=== PATIENT | male | born 1955 | race Caucasian/White ===

== ENCOUNTER 2017-04-28 21:46 | Observation (INO) | payer OTHER ==
[~2017-04-28] VITALS: Ht 190.5 cm; Wt 100.2 kg
--- NOTE | ~2017-04-28 | ENPV ---
Carotid Duplex Study Demographics Patient Name PATIENTELISABETH Date of Study 04/29/2017 Patient Number [id number] Gender Male Date of 1955 Age 61 Visit Number [id number] Height Accession Number [id number] Weight Room Number [id number] BSA BMI Referring Interpreting Tavo Stockton MD Physician Physician Physician Ordering Physician Jose Morris MD School Counselor Preschool Associate Teacher Wilfredo Garland BS, RT Conclusions Summary The right internal carotid artery has mild 1-39%, plaque and stenosis. The right vertebral artery is present with antegrade flow. The left internal carotid artery has mild, 1-39%, plaque and stenosis. The left vertebral artery is present with antegrade flow. Procedure Type of Study: Cerebral:Carotid, Carotid Doppler Bilateral. Indications for Study:TIA. Allergies - No known allergies. Patient Status:Routine. Study Location:Inpatient Portable. Technical Quality:Adequate visualization. Velocities are measured in cm/s ; Diameters are measured in cm Carotid Right Measurements Carotid Left Measurements + +--------+--------+ + + + +--------+ --------+ + + !Location !PSV !EDV !Angle !%Stenosis ! !Location !PSV ! EDV !Angle !%Stenosis ! + +--------+--------+ + + + +--------+ --------+ + + !Prox CCA !111 !31 !60 ! ! !Prox CCA !106 ! 18 !60 ! ! + +--------+--------+ + + + +--------+ --------+ + + !Dist CCA !79 !17 !60 ! ! !Dist CCA !91 ! 24 !60 ! ! + +--------+--------+ + + + +--------+ --------+ + + !Prox ICA !104 !36 !60 ! ! !Prox ICA !103 ! 36 !60 ! ! + +--------+--------+ + + + +--------+ --------+ + + !Dist ICA !125 !35 !60 ! ! !Dist ICA !78 ! 27 !44 ! ! + +--------+--------+ + + + +--------+ --------+ + + !Prox ECA !114 ! !60 ! ! !Prox ECA !131 ! !60 ! ! + +--------+--------+ + + + +--------+ --------+ + + !Vertebral !57 ! !60 ! ! !Vertebral !72 ! !60 ! ! + +--------+--------+ + + + +--------+ --------+ + + !Subclavian !151 ! !60 ! ! !Subclavian !154 ! !60 ! ! + +--------+--------+ + + + +--------+ --------+ + + - There is antegrade vertebral flow noted on the right side. - There is antegrade verte bral flow noted on the left side. - Add'l Measurements:ICAPSV/CCAPSV 1.13.ICAEDV/CCAEDV 1.17. - Add'l Measurements:ICAPS V/CCAPSV 0.97.ICAEDV/CCAEDV 2.05. Signature dtt: CY CHAVEZ dttelma: 04/29/17 0927 Physician Self Edit
--- NOTE | ~2017-04-28 | CON ---
PATIENT'S NAME: PATIENT, ELISABETH Ortega [facility] AGE: 61 Y [address] ROOM: [place] [address] LOCATION: GICU ADMIT DATE: 04/28/2017 Consultation DISCHARGE DATE: FAMILY PHYSICIAN: PHYSICIAN, UNKNOWN ATTENDING PHYSICIAN: KALIE FOY Tele Specialist Teleneurology Consult Note REASON FOR CONSULTATION: Stroke alert. FINDINGS: Mr. Cho Patient is a pleasant 61-year-old gentleman with a past medical history significant for coronary artery disease, x2 stents, hernia surgery, CABG x2, hypertension, COPD, and hyperlipidemia, who presents with an episode of confusion and slurred speech. The patient was last known well sometime around dinner time this evening when his noted that he started to act strange and out of character. She was unable to significantly characterize the symptoms other than he seems uninterested in his food and unable to pharmacy picking tech a fork or a knife to eat. His speech also seemed slurred. The patient was then transferred to the emergency department via EMS, who also reported slurring of speech. A CAT scan of the head was done and does not show any acute intracranial abnormality, and I was called to evaluate the patient where he appeared to improve significantly. He is a poor historian and appears a little bit confused, but otherwise reports that he has no focal weakness, numbness, or vision disturbance. He does not appreciate currently any slurred speech. PHYSICAL EXAMINATION: NIH stroke scale was performed and is as follows. 1. Alert and keenly responsive and follows commands and is oriented. 2. Ocular movements are intact. 3. Visual lou are normal. 4. Normal facial symmetry. 5. No drift in the upper extremities. 6. No drift in the lower extremities. 7. No ataxia. 8. Normal sensation. 9. Normal language. 10. No dysarthria. 11. No extinction, again total NIH stroke scale of zero. IMPRESSION: Encephalopathy, unclear etiology, rule out stroke. PLAN: PATIENT'S NAME: PATIENT, ELISABETH Ortega [facility] AGE: 61 Y [address] ROOM: [place] [address] LOCATION: [facility] ADMIT DATE: 04/28/2017 Consultation DISCHARGE DATE: FAMILY PHYSICIAN: PHYSICIAN, UNKNOWN ATTENDING PHYSICIAN: KALIE FOY The patient is not a candidate for IV alteplase or neuro-intervention as his NIH stroke scale is low, and he is outside the treatment window. Further, his symptoms are nonlocalizing and rapidly improving. I would recommend a encephalopathy workup as well that would include toxic, metabolic, or infectious etiologies of his confusion. MRI scan would also be helpful to rule out stroke, and if this is abnormal, then further evaluation with stroke workup can be done at that time. I would continue him on his current outpatient medications, which include aspirin Effient, and pravastatin. 1. DVT prophylaxis and dysphasia screen are also recommended. Thanks very much for allowing us to participate in the care of this patient. Tele Specialist was called to the bedside at approximately 10:57 Eastern Standard Time and arrived to the bedside at approximately 11:00 p.m. Eastern Standard Time to evaluate the patient. If there are any further questions, please do not hesitate to call us back. MD JEFFREY CORONEL/modjared /[id number] d: t: 04/29/17 0533, CONSULTATION REPORT
--- NOTE | ~2017-04-28 | ECHO ---
Transthoracic Echocardiography Report (TTE) Demographics Patient Name PATIENTELISABETH Date of Study 04/30/2017 Patient Number [id number] Visit Number [id number] Date of 1955 Room Number [id number] Accession Number [id number] Gender Male Age 61 year(s) Referring Tara Morris Log Hauler Norman Holt RVT Physician MD Jose Morris MD Physician Interpreting Rebecca Tate MD Bruise Trimmer Physician Supervising Ordering Physician Jose Morris MD, MD/MLP Nurse Stress Emergency Services Dispatcher Conclusions Contractility Score Summary Normal Left Ventricular contractility was noted. Summary Definity images are 79-84. The estimated left ventricular ejection fraction is 50%. Diastolic function indeterminate due to patient's arrhythmia. Mildly reduced right ventricular function. The left atrium is mildly dilated. The right atrium is mildly dilated. IVC not visualized due to poor subcostal window. Mild mitral annular calcification. The aortic valve is mildly sclerotic. Mild tricuspid regurgitation by color Doppler. Procedure Type of Study TTE procedure:2D Echocardiogram, Echo with Contrast. Procedure Date Date: 04/30/2017 Start: 08:33 AM Study Location: Inpatient Portable Technical Quality: Adequate visualization Indications:TIA. Appropriate Use Criteria: 9 Patient Status: Routine HR: 53 bpm Allergies - No known allergies. M-Mode/2D Measurements LV Diastolic Dimension: 4.32 cm LV Systolic Dimension: 3.11 cm Cardiac Output: 4.31 l/min AO Root Dimension: 2.9 cm LA Dimension: 5 cm RV Base: 3.23 cm LVOT: 2.4 cm RV Mid: 2.87 cm LVOT VTI: 18 cm RV Length: 6.51 cm LV Stroke volume: 81.39 ml TDI-S': 9.21 cm/s Doppler Measurements AV Peak Velocity: 0.99 m/s MV Peak E-Wave: 0.68 m/s AV Peak Gradient: 3.89 mmHg MV Peak A-Wave: 0.54 m/s AV Mean Gradient: 2 mmHg MV E/A Ratio: 1.26 LVOT Peak Velocity: 0.84 m/s MV P1/2t: 76 msec TR Gradient:14.59 mmHg PV Peak Velocity: 0.88 m/s PV Peak Gradient: 3.13 mmHg E' Septal Velocity: 0.06 m/s A' Septal Velocity: 0.08 m/s E' Lateral Velocity: 0.09 m/s A' Lateral Velocity: 0.09 m/s Findings Left Ventricle Diastolic function indeterminate due to patient's arrhythmia. Right Ventricle Mildly reduced right ventricular function. Left Atrium The left atrium is moderately dilated. Right Atrium The right atrium is mildly dilated. IVC not visualized due to poor subcostal window. Mitral Valve Mild mitral annular calcification. Aortic Valve The aortic valve is mildly sclerotic. Tricuspid Valve Mild tricuspid regurgitation by color Doppler. Pulmonic Valve Normal pulmonic valve structure and function. Pericardial Effusion No evidence of pericardial effusion. Miscellaneous Visualized portions of the aortic root and ascending aorta appear normal in size. Pleural Effusion No evidence of pleural effusion. Contractility Score LV regional wall motion:(0-Non visualized 1-Normal 2-Hypokinesis 3-Akinesis 4-Dyskinesis 5-Aneurysm) Signature dtt: Bebeto Fernandez (cardio) dtd: 04/30/17 0833 Physician Self Edit
--- NOTE | ~2017-04-28 | HP ---
PATIENT'S NAME: ELISABETH DOWNING [facility] AGE: 61 Y [address] ROOM: [id number] [place], [place] [address] LOCATION: GICU ADMIT DATE: 04/28/2017 History & Physical DISCHARGE DATE: FAMILY PHYSICIAN: PHYSICIAN, NO ATTENDING PHYSICIAN: KALIE FOY DATE OF SERVICE: 04/29/2017 CHIEF COMPLAINT: "I don't remember." HISTORY OF PRESENT ILLNESS: Mr. Downing is a complex 61-year-old male with a history of coronary artery disease, status post CABG as well as recent stenting, hyperlipidemia, hypertensive chronic kidney disease, prediabetes as among others, who presents as admission to the [facility] under neuro trauma status for confusion. The patient initially had presented to the emergency department around 2144 hours on 04/28 2017 with a chief complaint of slurred speech, and had a stroke alert. Around 2100 hours. went to check on him and he was having slurred speech, difficulty talking, slow thought process, and he did not have any other complaints at that time. Had pretty unremarkable day before. Because of these symptoms, the patient was transferred to the emergency department for further evaluation and management. Upon reaching the emergency department, he had blood pressure 175/81, pulse 84, respirations 16, temp 97.3, oxygen was 95% on room air. He initially had a number of labs in the emergency department including a head CT, which were essentially was negative. Procalcitonin was negative as well as phosphorus. CMS was only remarkable for creatinine of 1.7 as well as albumin of 3.1, and otherwise was normal. ABG showed PO2 of 53 and bicarb of 26, troponin was negative. CBC essentially was unremarkable. The emergency department did call the teleneurology consultation line which did not recommend tPA. They did not recommend any neuro intervention "as his stroke scale was low and he is outside the treatment window." He did appear to be improving but was sent to the floor for further evaluation and management. Upon reaching the floor, the patient essentially could not tell me anything about what happened the night before. He does state that he feels really pretty good and would like to go home today. He had no other complaints at this time. REVIEW OF SYSTEMS: Negative except for those noted in the HPI. ALLERGIES: NO KNOWN DRUG ALLERGIES. PATIENT'S NAME: PATIENT, ELISABETH Ortega [facility] AGE: 61 Y [address] ROOM: [id number] [place], [place] [address] LOCATION: [facility] ADMIT DATE: 04/28/2017 History & Physical DISCHARGE DATE: FAMILY PHYSICIAN: PHYSICIAN, NO ATTENDING PHYSICIAN: KALIE FOY PAST MEDICAL HISTORY: 1. Coronary artery disease of [place] heart, [place] vessels, as well as transplanted vessels with status post PCI and stenting. 2. COPD, 2001. 3. Essential hypertension. 4. Gastroesophageal reflux. 5. Mixed hyperlipidemia. 6. History of tobacco abuse. 7. Hypertensive chronic kidney disease. 8. Palpitations. 9. Prediabetes. PAST SURGICAL HISTORY: 1. CABG in 2001 and 2003. 2. Colonoscopy 2009. 3. EGD 2009. 4. Hernia repair 2011. 5. Stent placement in 2012. SOCIAL HISTORY: The patient is a former tobacco user who smoked on and off for at least a 20- pack year history. He reports rare alcohol use and denies any other drugs. He works at [employer], [employer] and [employer]. He has done so for several years. He is . FAMILY HISTORY: Both parents are . The patient is a rather poor historian about their overall disposition. He thinks they sometime in the 70s. He thinks that both of them from cancer, but he is not certain. His mother, he reports never smoked or drank alcohol, but of some sort of cancer. His father did ultimately from blood clot, but thinks he may have had cancer as well. Out of six children, one from SIDS, one as a stillbirth, one recently from complications of an AK at age 60. The other three, he reports is relatively healthy. PHYSICAL EXAMINATION: VITAL SIGNS: Blood pressure is 141/75, pulse is 64, respirations 18, temp is 97.6. GENERAL: A pleasant, interactive adult male, in no acute distress. HEAD: Normocephalic, atraumatic. Eyes, conjunctivae clear. Sclerae white. ENT: Mucous membranes moist. HEART: Regular rate and rhythm without murmurs, rubs, clicks, gallops. LUNGS: Clear to auscultation in all lou bilaterally. ABDOMEN: Soft, nontender, nondistended. PATIENT'S NAME: PATIENT, ELISABETH Ortega [facility] AGE: 61 Y [address] ROOM: [id number] [place], [place] [address] LOCATION: [facility] ADMIT DATE: 04/28/2017 History & Physical DISCHARGE DATE: FAMILY PHYSICIAN: PHYSICIAN, NO ATTENDING PHYSICIAN: KALIE FOY EXTREMITIES: Warm and well perfused. No clubbing, cyanosis, or edema. NEUROLOGIC: The patient's cranial nerves 2-12 were tested and they are intact. The patient has 5/5 strength in the bilateral upper extremities and the flexion and extension at the elbow and wrist. The patient does have 4/5 extension of the fingers and bilateral, but health screener strength is 5/5. The patient's strength in the lower extremities was 5/5 at the hip, knee, and dorsiflexion and plantar flexion. The patient's [id number] testing and rapid alternating movements as well as tapping were all normal. There is no evidence of pronator drift. LABORATORIES AND X-RAY: As per noted in the HPI. IMPRESSION AND PLAN: A 61-year-old gentleman with slurred speech and possible transient ischemic attack. 1. Slurred speech, confusion, and possible transient ischemic attack. The patient's CT of the head was negative as per previously noted in Teleneurology, did not have any further acute recommendations. We will go ahead and work him up for transient ischemic attack with DANIEL, carotid ultrasound, as well as MRI of the brain without contrast. We will see how these tests all look. Additionally, he has taken 81 mg aspirin. He is currently on Effient. I did recommend increasing about to a full aspirin. We will observe him throughout today. See how he looks tomorrow, may consider discharge home as long as he is feeling stable, there is no evolution. Otherwise it was recommended that the patient be worked up for some sort of encephalopathic process. He does not appear to be any toxins at least per the patient's history, though his job at the [employer] may expose him to potentially some toxic substances. I did go ahead and order some additional blood work as well as chest x-ray, urinalysis with culture, and thyroid. I did repeat blood gas as well. I will see how he does overall today. 2. Chronic ischemic heart disease. 3. Coronary artery disease, heart [place] vessels as well as transplanted vessels. 4. Essential hypertension. 5. Mixed dyslipidemia. All these appeared to be stable. We will continue the patient's home medication regimen. 6. Impaired fasting glucose. We will continue with metformin for now. 7. Gastroesophageal reflux disease. Continue with Dexilant. 8. Likely history of depression anxiety and not explicitly noted in the patient's history whether it is here in the hospital or in the clinic but the patient is taking bupropion. 9. Chronic obstructive pulmonary disease/asthma. The patient is former smoker. We will continue him on his Advair here in the hospital. PATIENT'S NAME: PATIENT, ELISABETH Ortega [facility] AGE: 61 Y [address] ROOM: [place] [address] LOCATION: [facility] ADMIT DATE: 04/28/2017 History & Physical DISCHARGE DATE: FAMILY PHYSICIAN: PHYSICIAN, NO ATTENDING PHYSICIAN: KALIE FOY FLUIDS: None. ELECTROLYTES: Stable. NUTRITION: Diabetic diet. PROPHYLAXIS: As noted above. CODE STATUS: Full code per my discussion with the patient. DISPOSITION: The patient is currently under inpatient status. We will have him here at least another day for observation and further workup. We will have the patient off to the patient's primary care physician, Dr. Neptali Pacheco who should be available. Should he not, I will assume care for the patient for the rest of the hospitalization. MD ABHIJEET JUÁREZ/alphonso /[id number] D: 442 T: HISTORY & PHYSICAL
--- NOTE | ~2017-04-28 | ER ---
PATIENT'S NAME: PATIENT, ELISABETH Ortega [facility] AGE: 61 Y [address] ROOM: [place] [address] LOCATION: [facility] ADMIT DATE: 04/28/2017 ER/Outpatient Report DISCHARGE DATE: FAMILY PHYSICIAN: PHYSICIAN, UNKNOWN ATTENDING PHYSICIAN: KALIE GARCIA Time of Arrival: 2144 hours. Time of Evaluation: 2144 hours. CHIEF COMPLAINT: Slurred speech and stroke alert. HISTORY OF PRESENT ILLNESS: The patient is a 61-year-old male who presents to the emergency department today with a chief complaint of slurred speech and stroke alert. Reports at 2100 hours today, his went to check on him and noted to have slurred speech, difficulties talking, and slowed thought process. The patient was stroke alert from the field. Denies any fevers or chills. No nausea or vomiting. No diarrhea or constipation. Apparently he was acting normal at 2100 hours today, 45 minutes prior to arrival. The patient did not have a history of similar episodes in the past. PAST MEDICAL HISTORY: Diabetes, hypertension, coronary artery disease, dyslipidemia, chronic constipation, right inguinal hernia, and borderline diabetic. PAST SURGICAL HISTORY: Coronary artery bypass grafting in 2001 and 2012. SOCIAL HISTORY: The patient is . Has 5 children. Quit smoking quite some years ago. Drinks occasionally. Denies any illicit drug use. ALLERGIES: NO KNOWN DRUG ALLERGIES. MEDICATIONS: Please see list. PRIMARY CARE DOCTOR: Dr. Pacheco. REVIEW OF SYSTEMS: All systems are reviewed by myself and are negative with the exception of those discussed in the HPI and past medical history. PATIENT'S NAME: PATIENT, ELISABETH Ortega [facility] AGE: 61 Y [address] ROOM: [address] [address] LOCATION: [facility] ADMIT DATE: 04/28/2017 ER/Outpatient Report DISCHARGE DATE: FAMILY PHYSICIAN: PHYSICIAN, UNKNOWN ATTENDING PHYSICIAN: KALIE GARCIA PHYSICAL EXAMINATION: VITAL SIGNS: Weight 100.9 kg, blood pressure 179/81, pulse 84, respiratory rate 16, temperature 97.3, and oxygen saturation 93% on room air. GENERAL: The patient is a 61-year-old male, appears older than stated age, obese, he does have some slowed thought process. HEENT: Normocephalic and atraumatic. Pupils are equal, round, and reactive to light. Extraocular motions are intact. Nares are patent bilaterally. TMs are clear. Oropharynx is clear. NECK: Supple. There is no nuchal rigidity. CARDIOVASCULAR: Regular rate and rhythm. No murmurs, rubs, or gallops. LUNGS: Clear to auscultation bilaterally. No wheezes, rales, or rhonchi. ABDOMEN: Soft, nontender, and nondistended. No rebound, rigidity, or guarding. MUSCULOSKELETAL: The patient moves all 4 extremities. NEUROLOGICAL: GCS of 14. Equal architectural coating finisher strength bilaterally. Moves all 4 extremities. 5/5 muscle strength. Normal finger to nose. Normal rapid hand movement. Equal architectural coating finisher strength bilaterally. Downward going toes. No clonus. SKIN: Warm and dry. LABORATORY DATA AND X-RAYS: Labs and x-rays are obtained. CT scan of the brain is obtained. I have discussed results with the radiologist, shows no acute process. EKG is obtained, interpreted by myself at 2225 hours, shows sinus rhythm with a rate of 75, left axis deviation, normal interval. No ST elevation, ST depression, or T-wave inversion. CBC is normal. CMP is normal except for a creatinine of 1.7. LFTs are normal. Coags are normal. Troponin is less than 0.04. CK and CK-MB are normal. Phosphorus is normal. Amylase and lipase normal. Lactate is normal. Venous blood gas; 7.38/44/53/26/0.6. IMPRESSION: 1. Transient ischemic attack versus cerebrovascular accident. 2. Slurred speech. 3. Initial visit. EMERGENCY DEPARTMENT COURSE: The patient was brought back to the examination room. Seen and evaluated immediately upon arrival by myself. The patient was a stroke alert from the field. Symptoms started about 45 minutes prior to arrival. The patient did have a quick neuro exam and laboratory analysis was obtained and then the patient was proceeded directly to the CT scanner. CT of the brain was obtained, it was negative. We did have Teleneurology, Dr. Clark, seen and evaluated the patient. I discussed the case with her, she does recommend no further medications as the patient is already on blood thinners including Effient and aspirin. She did recommend MRI at some point tomorrow. I have PATIENT'S NAME: PATIENT, ELISABETH Ortega [facility] AGE: 61 Y [address] ROOM: [id number] [place], [place] [address] LOCATION: [facility] ADMIT DATE: 04/28/2017 ER/Outpatient Report DISCHARGE DATE: FAMILY PHYSICIAN: , ROBINSON ATTENDING PHYSICIAN: KALIE GARCIA discussed results with the patient and his family, who is at the bedside. I have recommended admission to the hospital, they are agreeable. I did discuss the case with Dr. Garcia; who is on-call for the patient's primary care doctor, Dr. Pacheco; he is agreeable with the acceptance and without further questions at this time. DISPOSITION: The patient is admitted under the care of Dr. Garcia for Dr. Pacheco in stable condition. DO KOREY UGALDE/audreyl /[id number] d: 04/29/17 0517 t: 04/29/17 0553, OUTPATIENT REPORT
[2017-04-28 21:55] LABS: BASOPHIL # 0.1 K/uL (0.0-0.2); BASOPHIL % 0.7 %; EOSINOPHIL # 0.7 K/uL (0.0-0.5); EOSINOPHIL % 7.3 %; HEMATOCRIT 37.7 % (37.0-53.0); HEMOGLOBIN 13.1 g/dL (12.0-17.0); IMMATURE GRANULOCYTE # 0.1 K/uL (0.0-0.3); IMMATURE GRANULOCYTE % 0.7 %; LYMPHOCYTE # 1.6 K/uL (0.8-4.0); LYMPHOCYTE % 17.4 %; MCH 30.6 pg (27.0-34.0); MCHC 34.7 gm/dL (32.0-36.5); MCV 88.1 fl (83.0-98.0); MONOCYTE # 1.1 K/uL (0.0-1.0); MONOCYTE % 11.9 %; MPV 9.4 fl (9.4-12.4); NEUTROPHIL # (ANC) 5.6 K/uL (1.4-9.0); NRBC % 0 /100WBC (0-0.00); PLATELET COUNT 248 K/uL (150-450); RBC 4.28 M/uL (4.00-6.00); RDW-CV 13.2 % (11.9-14.6); WBC 8.9 K/uL (4.0-11.0)
[2017-04-28 22:04] LABS: INR - (THERAPEUTIC) 0.94 (0.92-1.07); PROTIME 9.9 SECONDS (9.8-11.4); PTT 25 SECONDS (25-32)
[2017-04-28 22:21] LABS: ALBUMIN 3.1 gm/dL (3.5-5.0); ANION GAP 12.3 (10.0-19.0); CALCIUM 8.5 mg/dL (8.5-10.5); CREATININE 1.7 mg/dL (0.6-1.3); POTASSIUM 4.3 mMol/L (3.7-5.1); TOTAL BILIRUBIN 0.2 mg/dL (0.0-1.5); TOTAL PROTEIN 6.5 g/dL (6.0-8.4)
[2017-04-28 22:22] LABS: LACTATE 0.9 mEq/L (0.50-1.60); PCO2 44 mmHg (35-45); PO2 53 mmHg (80-90)
[2017-04-29] MEDS ORDERED: EFFIENT10 MG (01:06)
[2017-04-29] MEDS ORDERED: GLUCOPHAGE500 MG PO (01:06)
[2017-04-29] MEDS ORDERED: PRINIVIL OR ZES10 MG PO (01:07)
[2017-04-29] MEDS ORDERED: CARVEDILOL6.25 MG PO (01:08)
[2017-04-29] MEDS ORDERED: PRAVACHOL40 MG (01:11)
[2017-04-29] MEDS ORDERED: DEXILANT60 MG PO (01:11)
[2017-04-29] MEDS ORDERED: ASPIRIN (CHILDR81 MG PO (01:12)
[2017-04-29] MEDS ORDERED: ADVAIR 250-501 EACH INH (01:13)
[2017-04-29] MEDS ORDERED: WELLBUTRIN XL300 M1 PO (01:35)
--- NOTE | 2017-04-29 02:03 | NUR ---
Patient admitted to ICU as NTU status for TIA at 0008. Patient was at home earlier with family, when he started having slurred speech. Family called 911 and ambulance came and got the patient. Head CT done in ER, was negative. Teleneurology consult in ER said patient had a TIA. Patient has history of a 3 vessel CABG, 2 vessel CABG, hypertension, high cholesterol, edema, asthma, GERD, and is pre-diabetic. Patient is resting comfortably now.
--- NOTE | 2017-04-29 05:28 | NUR ---
Significant Event: Patient is alert and oriented x 3. VSS on room air. Denies any numbness or tingling. Equal strength throughout. PERRLA. Slight generalized headache, patient states tolerable. Stroke scale score of 0. Up with SBA and gait belt. Left forearm IV, saline locked. On diabetic diet. Patient is pleasant and cooperative with cares. Follow up: MRI and carotid dopplers this am.
--- NOTE | 2017-04-29 13:30 | NUR ---
Introduced self and role of care management to patient. Patient lives in [place] with and 5 of their 6 children. He says they adopted 4 children later in life. Patient is anxious to go home and hopes to go home today. Patient denies discharge needs at this time. Will follow.
--- NOTE | 2017-04-29 13:56 | NUR ---
Significant Event: PT ALERT AND ORIENTED X3. PERRLA. STROKE SCALE 0 THIS SHIFT. EQUAL STRENGTH X4. PT DOES NOT HAVE ANY TEETH; STATES THAT DENTURES ARE AT HOME. BRADYCARDIA WHEN SLEEPING WITH RATES IN THE UPPER 40'S-50'S. OTHER VITAL SIGNS STABLE. ON ROOM AIR. IV TO L)FA SALINE LOCKED. TRANSFERS WITH STAND-BY ASSIST. VOIDS PER TOILET. BM THIS SHIFT. COMPLAINS OF A SLIGHT HEADACHE; HAS DENIED ANY NEED FOR PAIN MEDICATIONS. REFUSED A SHOWER TODAY. MRI AND CAROTID DOPPLERS DONE TODAY. Follow up: HOME TOMORROW?
[2017-04-29 19:06] LABS: BILIRUBIN URINE NEGATIVE (NEGATIVE); BLOOD URINE NEGATIVE /UL (NEGATIVE); COLOR URINE YELLOW (YELLOW); GLUCOSE URINE NEGATIVE (NEGATIVE); KETONE URINE NEGATIVE (NEGATIVE); LEUKOCYTES URINE NEGATIVE /UL (NEGATIVE); NITRITE URINE NEGATIVE (NEGATIVE); PROTEIN URINE NEGATIVE (NEGATIVE); TURBIDITY URINE CLEAR (CLEAR); UROBILINOGEN URINE NORMAL (NORMAL)
--- NOTE | 2017-04-30 05:17 | NUR ---
Significant Event: Pt is alert and orineted x3. Pupils are equal and reactive. Moves all extremities spontaneously and to command. Denies any numbness or tingling. Speech back to baseline. Pt has been SR to Parmjit while sleeping. Moves independently. On RA. Voids per toilet. [address] Follow up: Possible discharge today
[2017-04-30] MEDS ORDERED: LEVOTHROID (SY50 MCG PO (08:19)
--- NOTE | 2017-04-30 10:15 | NUR ---
Significant Event: PT A&O x3. VSS, on room air. Denies pain. L)FA IV dc'd. Dismissal instructions given to PT/spouse, voiced understanding. Instructed on cardiac diet, no smoking and new medication. PT up ad rico in room. Wheeled to front lobby and dismissed to home. Echo done this AM. Follow up:
== END 2017-04-30 10:10 | disposition disaster alternative care site (69) ==
LOC: GMED 21:46 → GICU 23:36
PROVIDERS: Emergency Medicine; ADMIT Family Medicine
DX: R47.81 Slurred speech (principal); I25.9 Chronic ischemic heart disease, unspecified; I25.10 Atherosclerotic heart disease of native coronary artery without angina pectoris; I10 Essential (primary) hypertension; E78.2 Mixed hyperlipidemia; K21.9 Gastro-esophageal reflux disease without esophagitis; E11.9 Type 2 diabetes mellitus without complications; J44.9 Chronic obstructive pulmonary disease, unspecified; G93.40 Encephalopathy, unspecified; G93.0 Cerebral cysts; I65.23 Occlusion and stenosis of bilateral carotid arteries; Z87.891 Personal history of nicotine dependence; Z95.1 Presence of aortocoronary bypass graft; Z79.82 Long term (current) use of aspirin; Z79.899 Other long term (current) drug therapy
CPT/HCPCS: C8929; G0378; Q9957

== ENCOUNTER 2017-05-10 00:13 | Inpatient (IN) | payer OTHER ==
[~2017-05-10] VITALS: Ht 188 cm; Wt 101.6 kg
--- NOTE | ~2017-05-10 | HP ---
PATIENT'S NAME: PATIENT, ELISABETH Ortega [facility] AGE: 61 Y [address] ROOM: [place] [address] LOCATION: GPCU ADMIT DATE: 05/10/2017 History & Physical DISCHARGE DATE: FAMILY PHYSICIAN: Arnaud Perez MD ATTENDING PHYSICIAN: KALIE FOY DATE OF SERVICE: Mr. Cho Patient is a 61-year-old male, admitted through the ER for chest pain overnight. ADMITTING DIAGNOSIS: Anterior chest pain, possible unstable angina. Condition right now is good and stable as of 9:00 a.m. Most recent vitals; temperature 97.5, pulse 59, respiratory rate 12, blood pressure 128/69, and saturation 96. Medications given on admission, baby aspirin with IV nitroglycerin, and heparin. The patient has no known drug allergies. HISTORY OF PRESENT ILLNESS: He was admitted overnight with chest pain that radiated down both arms with shortness of breath and weakness that worsened with exertion. He has a history of coronary artery disease with bypass history and risk factors. The patient feels good this morning with no chest pain, but does complain of a headache. Denies other symptoms and is somewhat irritable. PAST MEDICAL HISTORY: Significant for atherosclerotic cardiovascular disease with coronary artery disease, hypertension, COPD, dyslipidemia, prediabetes, tobacco use, GERD, chronic kidney disease, depression, anxiety, hypothyroidism, coronary vascular disease, and cerebrovascular accident. PAST SURGERIES: EGD, colonoscopy, three-vessel coronary artery bypass with a two-vessel coronary artery bypass, inguinal herniorrhaphy, cardiac cath with PICA and stents. SOCIAL HISTORY: He smokes a pack a day with occasional alcohol. ALLERGIES: NO KNOWN DRUG ALLERGIES. REVIEW OF SYSTEMS: He does admit to headache. Otherwise negative at this time. PATIENT'S NAME: PATIENT, ELISABETH Ortega [facility] AGE: 61 Y [address] ROOM: [address] [address] LOCATION: GPCU ADMIT DATE: 05/10/2017 History & Physical DISCHARGE DATE: FAMILY PHYSICIAN: Arnaud Perez MD ATTENDING PHYSICIAN: KALIE FOY PHYSICAL EXAMINATION: GENERAL: Alert and oriented x3. HEENT: Positive for headache reported, negative otherwise. NECK: Supple and no adenopathy. CARDIOVASCULAR: Regular rate and rhythm. No murmurs, rubs, or gallops. LUNGS: Did have an inspiratory wheeze on the right. Otherwise, good air flow. GI: Abdomen nontender, nondistended. Bowel sounds present x4, soft. EXTREMITIES: Pulses palpable, 2+/4. SKIN: Dry skin on the feet with no edema. LABORATORY DATA: Troponin elevated at 0.09. Hematocrit low at 36.9, hemoglobin 12.3, white blood cell count 8.0, and platelets 277. Sodium 141, potassium 3.9, chloride 108, CO2 of 24, BUN 19, creatinine high at 1.8, and glucose high at 133. Calcium low at 8.2, albumin low at 2.9, and magnesium low at 1.7. Hemoglobin A1c 6.1 which is high. PTT was 37 per heparin protocol. His latest GFR is 40. Chest x-ray report was pending with possible mediastinal widening with possible cardiomegaly, possible scarring, and atelectasis both bases bilaterally. ASSESSMENT/PLAN: 1. Acute coronary syndrome with unstable angina. Continue heparin and nitroglycerin IV with a cardiac consult this morning. 2. History of atherosclerotic coronary artery disease, with atherosclerotic vascular disease, coronary artery bypass surgery x2, and cardiac cath with stenting. 3. Pre-diabetes. 4. Hypertension. 5. Dyslipidemia, mixed hyperlipidemia. 6. Tobacco use. 7. Chronic kidney disease. 8. Chronic obstructive pulmonary disease. 9. Depression and anxiety. Dictated by Chaitanya Shaw, Medical Student, for Arnaud Perez MD ARNAUD PEREZ MD COLON/modl PATIENT'S NAME: PATIENT, ELISABETH Ortega [facility] AGE: 61 Y [address] ROOM: [id number] [place], [place] [address] LOCATION: GPCU ADMIT DATE: 05/10/2017 History & Physical DISCHARGE DATE: FAMILY PHYSICIAN: Arnaud Perez MD ATTENDING PHYSICIAN: KALIE FOY /[id number] D: [id number] T: [id number] HISTORY & PHYSICAL
--- NOTE | ~2017-05-10 | ER ---
PATIENT'S NAME: PATIENT, ELISABETH Ortega [facility] AGE: 61 Y [address] ROOM: [place] [address] LOCATION: [facility] ADMIT DATE: 05/10/2017 ER/Outpatient Report DISCHARGE DATE: FAMILY PHYSICIAN: Neptali Pacheco MD ATTENDING PHYSICIAN: Jimmy Tripp Admission date and time documented in the medical record. I saw the patient at 0025 hours. CHIEF COMPLAINT: Anterior chest pain radiating down to both arms with accompanied shortness of breath and generalized weakness. Shortness of breath and chest pain exacerbated with exertion. HISTORY OF PRESENT ILLNESS: This patient is a 61-year-old male who was brought to the emergency room by private vehicle for evaluation because of anterior chest pain. Chest pain radiates down both arms. Denies any neck, jaw, or back pain. Does have accompanied shortness of breath. No nausea, vomiting, diarrhea, diaphoresis, lightheadedness, or dizziness. Does have some generalized weakness. Shortness of breath and chest pain are worsened with exertion. The patient is known to have atherosclerotic ischemic heart disease with coronary artery disease. He has had a previous 2-vessel coronary bypass graft. He has had cardiac catheterizations with PTCA and stenting. He has risk factors including hypertension, known coronary artery disease, luk-riykupg-fukkuzwah diabetes mellitus, and remote tobacco abuse. Does have anxiety, depression, hypothyroidism, and previous cerebrovascular accident. Also has COPD. No joint or muscle swelling, redness, or pain. No skin eruptions or rash. No history of psych issues. No fall or trauma. No lightheadedness, dizziness, syncope, or near syncope. No recent colds, coughs, flus, fever, chills, or sweats. No abdominal pain. No urinary symptoms. No diarrhea. HOME MEDICATIONS: See attached medication list. ALLERGIES: NONE. SOCIAL HISTORY: The patient smokes about a pack of cigarettes per day. Occasional intake of alcohol. SIGNIFICANT PAST MEDICAL HISTORY: Atherosclerotic ischemic heart disease with coronary artery disease, hypertension, COPD, dyslipidemia, ntx-iaaiass-etymxkxbo diabetes mellitus type PATIENT'S NAME: PATIENT, ELISABETH Ortega [facility] AGE: 61 Y [address] ROOM: [place] [address] LOCATION: [facility] ADMIT DATE: 05/10/2017 ER/Outpatient Report DISCHARGE DATE: FAMILY PHYSICIAN: Neptali Pacheco MD ATTENDING PHYSICIAN: Jimmy Tripp 2, tobacco abuse, gastroesophageal reflux, palpitations, chronic kidney disease, depression, anxiety, hypothyroidism, and cerebrovascular accident. OPERATIONS: Esophagogastroduodenoscopy, colonoscopy, initial 3-vessel coronary artery bypass graft followed by 2-vessel coronary bypass graft, inguinal herniorrhaphy, and cardiac catheterization with PTCA and stenting. REVIEW OF SYSTEMS: All systems reviewed by me are negative with the exception of those discussed in the history of present illness. PHYSICAL EXAMINATION: VITAL SIGNS: Temperature 97.5 by Temporal Scanner, pulse 61 and regular, respirations 16, blood pressure 184/90, and O2 saturation on room air is 98%. [place] Coma Scale was 15. HEAD: Normocephalic. EYES, EARS, NOSE, THROAT: Clear. Mucous membranes moist. NECK: No nuchal rigidity. No findings of adenopathy. LUNGS: Clear. Good air flow. No rales, rhonchi, or wheezes. HEART: Regular. Pulses palpable. No real chest pain to palpation. ABDOMEN: Soft, nondistended, and nontender. Good bowel tones. No organomegaly or abnormal mass palpable. No CVA tenderness. EXTREMITIES: Intact. NEUROVASCULAR: Intact. SKIN: Clear. No skin eruptions or rash. LABORATORY DATA AND X-RAYS: CMS was normal except for an elevated glucose of 133, calcium was low at 8.2, creatinine was elevated at 1.8 with a low GFR of 40, magnesium 1.7, CPK was 111, CK-MB was 1.3, troponin was slightly elevated at 0.044, and proBNP was 150. White count was 8000, 70 segs, 12 lymphs, 11 monos, 6 eos, 1 baso, hemoglobin was 12.3, hematocrit 36.9, and platelet count was 277,000. PTT was 28. Pro-time was 9.8 with an INR of 0.93. EKG showed sinus rhythm. No acute ST elevation, ischemic change, or arrhythmia. EMERGENCY DEPARTMENT COURSE: We did give the patient 4 baby aspirin on arrival orally. We started him on IV nitroglycerin drip and IV heparin per cardiac protocol. We did discuss the patient with Dr. Garcia for Dr. Pacheco. IMPRESSION: 1. Anterior chest pain with radiation of the pain down both arms accompanied with shortness of breath and generalized weakness. His chest pain and shortness of breath were exacerbated with exertion. This appears to be PATIENT'S NAME: PATIENT, ELISABETH Ortega [facility] AGE: 61 Y [address] ROOM: [place], [place] [address] LOCATION: [facility] ADMIT DATE: 05/10/2017 ER/Outpatient Report DISCHARGE DATE: FAMILY PHYSICIAN: Neptali Pacheco MD ATTENDING PHYSICIAN: Jimmy Tripp unstable angina. 2. History of atherosclerotic ischemic heart disease with coronary artery disease, status post coronary bypass graft and cardiac catheterization with PTCA and stenting. 3. Azw-zymxzvp-ygqjfmvbz diabetes mellitus. 4. Hypertension. 5. Dyslipidemia. 6. Hgb-dtvkldv-onagpkcrb diabetes mellitus type 2. 7. Tobacco abuse. 8. Hypertensive chronic kidney disease. PLAN: The patient was admitted as an outpatient to U telemetry for further cardiac evaluation and treatment. Discussion ensued with the patient concerning my findings and recommendations, he understands. JIMMY TRIPP MD SDS/modl /[id number] d: 05/10/170 t: 05/13/17 1812, OUTPATIENT REPORT
--- NOTE | ~2017-05-10 | CONS ---
PATIENT'S NAME: PATIENT, ELISABETH Ortega [facility] AGE: 61 Y [address] ROOM: [place] [address] LOCATION: GPCU ADMIT DATE: 05/10/2017 Consultation DISCHARGE DATE: FAMILY PHYSICIAN: Neptali Pacheco MD ATTENDING PHYSICIAN: Arthur Garcia DATE OF CONSULTATION: 05/10/2017 REFERRING PHYSICIAN: Darcie Sullivan MD REQUESTING PROVIDER: Neptali Pacheco MD. REASON FOR CONSULTATION: Chest pain. HISTORY OF PRESENTING ILLNESS: The patient is a very pleasant, 61-year-old male who comes in at midnight yesterday because of recurrent episodes of chest pain all day especially with any exertion. He reports the chest pain occurs in the center of his chest. It is heaviness as well as tightness and goes down both of his arms and he has shortness of breath along with this. He reports he has had 3 episodes yesterday and he had to limit his activities. It would come and go. It would last several minutes about half an hour or so of this severe pain. However, he would have a dull ache most of the day yesterday. The first episode started when he was trying to lift a chair and move it from his truck. He does not have any jaw pain. He does not have any nausea, vomiting, diarrhea, diaphoresis, lightheadedness, or dizziness. He did have some generalized weakness along with the chest pain and shortness of breath. They are worse with exertion. He has had CABG on 2 separate occasions, in 2001 and then in 2003. Initial CABG was MARTINEZ to LAD, SVG to OM and RCA, and apparently, he did have an acute RI after the CABG and all the vein grafts were occluded, but the MARTINEZ was patent, and at that time, he underwent another CABG and underwent an SVG to ramus and an SVG to RCA. His last heart catheterization was in 2012, where the ramus was a very small vessel and the graft to the ramus was completely occluded. His vein graft to the RCA and MARTINEZ to LAD were patent. There was a 90% stenosis in the vein graft to the RCA and that was stented with 1 drug-eluting stent. Since then, the patient reports he has been doing fairly well. He has not been seeing a door worker since that intervention in 2012. He does report seeing Dr. Milligan and Dr. Fernandez in the past. Due to insurance issues and financial reasons, he has not followed up with the door worker. He does have renal insufficiency, not sure if this is acute or chronic. His creatinine on April 26 when he was admitted with TIA type symptoms, was 1.7 and this time, it is 1.8. His last creatinine before these 2 were in 2012 PATIENT'S NAME: PATIENT, ELISABETH Ortega [facility] AGE: 61 Y [address] ROOM: [address] [address] LOCATION: GPCU ADMIT DATE: 05/10/2017 Consultation DISCHARGE DATE: FAMILY PHYSICIAN: Neptali Pacheco MD ATTENDING PHYSICIAN: Arthur Garcia where it was 1.3. The patient does not have any stroke-like symptoms since the last time. No changes in his strength, sensation, vision, swallowing, and speech. He is doing well. The patient does report he is smoking again about 4 to 5 cigarettes every day. He does have history of anxiety, depression, hypothyroidism as well as diabetes mellitus and COPD. He does not have any skin rashes. No other psych issues. No recent fall. No cold, fever, chills, any sweats, or abdominal pain, etc,. The patient is very comfortable during the interview. He is on nitroglycerin and heparin drip and does not have any chest discomfort since admission. REVIEW OF SYSTEMS: All review of systems were discussed with the patient. Pertinent positives and negatives as mentioned in the history of presenting illness. HOME MEDICATIONS: He has been on: 1. Metformin 500 b.i.d. 2. Prasugrel 10 mg p.o. daily. I will have to discontinue that given his history of TIA. 3. Lisinopril 10 mg daily. 4. Coreg 6.25 b.i.d. 5. Pravachol 40 daily. 6. Aspirin 325 mg daily. 7. Bupropion 300 daily. 8. Synthroid 50 mcgs daily. ALLERGIES: NO KNOWN DRUG ALLERGIES. SOCIAL HISTORY: The patient smokes about half a pack of cigarettes per day. Social drinker. No illicit drug abuse. FAMILY HISTORY: Positive for premature coronary artery disease. PAST MEDICAL HISTORY: Coronary artery disease, status post CABG and stents; COPD; dyslipidemia; non- insulin-dependent diabetes mellitus, type 2; tobacco abuse; acid reflux; CKD; depression; anxiety; hypothyroidism; and history of TIA. PATIENT'S NAME: PATIENT, ELISABETH Ortega [facility] AGE: 61 Y [address] ROOM: [place] [address] LOCATION: GPCU ADMIT DATE: 05/10/2017 Consultation DISCHARGE DATE: FAMILY PHYSICIAN: Neptali Pacheco MD ATTENDING PHYSICIAN: Arthur Garcia PAST SURGICAL HISTORY: Three vessel CABG in 2001 followed by 2 vessel CABG in 2003. MARTINEZ to LAD is patent from initial bypass and then SVG to RCA is patent. The rest of the bypass grafts are all occluded. Inguinal hernia surgery. PHYSICAL EXAMINATION: VITAL SIGNS: Afebrile. Pulse is in the 60s and regular. Respirations 16. Blood pressure is 140/80 and O2 saturations are 98% on room air. HEAD: Normocephalic and atraumatic. Eyes: Sclerae are white. No xanthelasmas. Mucous membranes moist. NECK: No rigidity. No JVD. Neck is supple. HEART: S1 and S2. Regular rate and rhythm. No murmurs, gallops, or rubs. ABDOMEN: Soft. Bowel sounds positive. EXTREMITIES: No lower extremity edema. NEUROLOGIC: Grossly intact. Able to move all extremities against gravity. SKIN: Warm and dry. LABORATORY DATA: Glucose 133, calcium 8.2, and creatinine 1.8 with GFR of 40. Magnesium 1.7. CPK 111, CK-MB 1.3, and troponin 0.099. WBC 8, H and H of 12.3 and 36.9, and platelets are 277. INR 0.93. ProBNP 150. A chest x-ray, no acute cardiopulmonary process. EKG normal sinus rhythm, no ST deviations suggestive of ischemia or injury pattern. ASSESSMENT: 1. Unstable angina with recurrent episodes of chest pain with minimal exertion. Chest pain resolved with nitroglycerin and similar to prior to his previous intervention in 2012. With mildly elevated troponin of 0.099, we did repeat cardiac enzymes this a.m. and those are pending. 2. History of coronary artery disease status post coronary artery bypass surgery x2 occasions, 1 in 2001 and 1 in 2003. The current grafts that are patent based on catheterization in 2012 is MARTINEZ to LAD and SVG to RCA that Dr. Milligan stented at that time. 3. Drg-ztbzmvi-amqxbgwyz diabetes mellitus, type 2. 4. Hypertension. 5. Hyperlipidemia. 6. Tobacco abuse. 7. CKD. PLAN: At this time, it is best to proceed with cardiac cath and possible intervention. His story is very suggestive of unstable angina and possible obstructive coronary artery disease. This is new onset with recurrent symptoms, predictably exertional with minimal exertion and nitroglycerin PATIENT'S NAME: PATIENT, ELISABETH Ortega [facility] AGE: 61 Y [address] ROOM: [place] [address] LOCATION: GPCU ADMIT DATE: 05/10/2017 Consultation DISCHARGE DATE: FAMILY PHYSICIAN: Neptali Pacheco MD ATTENDING PHYSICIAN: Arthur Garcia helped with the pain. He is at high risk for MC and including need for dialysis given his CKD and GFR of 40. I explained this to patient and he understands and he is agreeable to proceed with cardiac cath and possible intervention. We will optimize renal function prior to cath. We will hydrate aggressively give him Mucomyst and monitor it closely during the post catheterization as well. Hyperlipidemia. His LDL goal is less than 70. We will check labs. I will put him on a moderate intensity statin and discontinue Pravachol and start Lipitor. He is unfortunately on the med list. He is on both prasugrel as well as aspirin and given the TIA, it is a contraindication to be on prasugrel. I have stopped that medication and this medicine is not to be restarted again because it is a contraindication to be on Effient given the history of TIA. We have not given it in the hospital during this admission. I guess his aspirin was increased to 325, given the recent TIA, however, depending on the CT findings, if he will be on daptomycin, he will need to be on 81 mg of aspirin, not 325. I did have a long discussion with the patient about the importance of compliance with medications and tobacco abuse cessation. He does understand. He is agreeable with plan. We will assist with medications if he needs any prior to discharge. Thank you very much for allowing us to participate in the care of Mr. Downing. MD ISRAEL SHULTZ/alphonso /[id number] d: 05/10/17 1524 t: 05/12/17 0922, CONSULTATION REPORT
--- NOTE | ~2017-05-10 | CATH ---
Cardiac Diagnostic + PCI Report Demographics Patient Name PATIENT ELISABETH Ortega Gender Male Date of 1955 Age 61 year(s) Patient Number [id number] Date of Study 05/10/2017 Visit Number [id number] Room Number G6[address] [place] [id number] Ht 187.96 cm Wt 102.2 kg Referring Tara Morris Primary Physician Physician Performing [facility] Secondary Physician Physician Darcie HERNANDEZ Diagnostic [facility] Assisting Physician Physician Darcie HERNANDEZ Interventional [facility] Physician Rn Transplant Physician Darcie HERNANDEZ Findings and Conclusions Diagnostic Findings and Conclusion Critical [place] TVD MARTINEZ to LAD, SVG and Diag grafts patent SVG to RPDA with 95% thrombotic lesion in distal portion of graft, the ostial/proximal portion of the graft is unchanged from prior cath in 2013. Diagnostic Recommendations Unstable angina, PCI of SVG to RPDA Interventional Findings and Conclusion s/p PCI of SVG to RPDA using TOÑO stents Interventional Recommendations Patient will be observed overnight. Hydration and followup creatinine. Patient has been instructed to not lift anything more than 5 pounds for 1 week. Aggressive risk factor management. Aggressive medical therapy for coronary artery disease. Antiplatelet will be given . Dual Anti-platelet therapy. Cardiac diet . Optimization of medical therapy as an outpatient. Referral to Cardiac Rehabilitation now and at discharge . I would like to thank Dr. Pacheco for the opportunity to participate in the care of Mr. Downing. Procedure Description The patient was brought to the diagnostic cardiac catheterization-EP laboratory in the fasting, non-sedated state. Informed consent was obtained in the written and verbal form after the risks and benefits were explained. The patient had no further questions and agreed to proceed. The planned puncture-incision site(s) were shaved and prepped with ChloraPrep and draped in the usual sterile manner. Conscious sedation, supplemental oxygen, and pain control medications were delivered by a registered nurse under physician guidance. Surface ECG rhythm, blood pressure measurement, and pulse oximetry were monitored throughout the procedure. Arterial access. The access site was infiltrated with lidocaine. The vessel was entered with the Seldinger technique. A sheath was advanced into the vessel and used for catheter placement. Selective left coronary angiography. A catheter was advanced into the left coronary vessel ostium under Fluoroscopic guidance. Contrast was injected by hand. Images were obtained in multiple projections. Selective right coronary angiography. A catheter was advanced into the right coronary vessel ostium under fluoroscopic guidance. Contrast was injected by hand. Images were obtained in multiple projections. Selective MARTINEZ graft angiography. A catheter was advanced into the left internal mammary graft ostium under fluoroscopic guidance. Contrast was injected by hand. Images were obtained in multiple projections. Selective SVG angiography. A catheter was advanced into the graft proximal anastomosis under fluoroscopic guidance. Contrast was injected by hand. Images were obtained in multiple projections. Left heart catheterization. A catheter was advanced across the aortic valve to the left ventricle under fluoroscopic guidance. Resting hemodynamics were obtained. Graft Stent: A guiding catheter was used to intubate the vessel. A 0.14 wire was used to cross the lesion. A Drug Eluting stent was placed. Post placement angiograms were performed. Arterial artery hemostasis. Hemostasis was achieved. The patient was transferred to a regular nursing floor via cart accompanied by a nurse. The patient left the laboratory in stable condition. Diagnostic Cath Status: Urgent Interventional Cath Status: Urgent Procedure Procedure Type PCI procedure:Drug Eluting Coronary Stent:, Graft Indications: NSTEMI. The procedure was explained in detail to the patient. Risks, complications and alternative treatments were reviewed. Written consent was obtained. Medications Reviewed with Patient prior to Procedure. Angiographic Findings Dominance: Right Cardiac Arteries and Lesion Findings LMCA: Abnormal.distal 90% Lesion on LMCA: Distal subsection.90% stenosis . LAD: Abnormal.ostial 70%, mid 100% Lesion on Prox LAD: Ostial.70% stenosis . Lesion on Mid LAD: Mid subsection.100% stenosis . LCx: Abnormal.mid 100% Lesion on Mid CX: Mid subsection.100% stenosis . RCA: mid 100% SAS ARCHITECT Lesion on Mid RCA: Mid subsection.100% stenosis .Chronic total occlusion. Ramus: Abnormal.100% Lesion on Ramus: Ostial.100% stenosis .Chronic total occlusion. Graft Lesions Lesion on Aorta Right to R PDA: Distal body.95% stenosis 18 mm length reduced to 0%. Pre procedure MAYE II flow was noted. Post Procedure MAYE III flow was present. A poor run off was present.The lesion was diagnosed as a high risk lesion.Culprit lesion. Devices used - Filterwire 190 cm. Number of passes: 1. - SpiderFX 4.0 mm x 320 cm. Number of passes: 1. - Emerge Balloon 3.0 x 12. 1 inflation(s) to a max pressure of: 6 surinder. - Promus Premier 4.0 x 20 Stent. 2 inflation(s) to a max pressure of: 14 surinder. - Promus Premier 4.0 x 28 Stent. 3 inflation(s) to a max pressure of: 14 surinder. Lesion on Aorta Right to R PDA: Proximal anastomosis.40% stenosis . Cardiac Grafts - There is a Vein graft that originates at the Aorta Right and attaches to the R PDA.There is a previous stent on Aorta Right to R PDA Middle Body. - There is a Vein graft that originates at the Aorta Left and attaches to the Ramus. - There is a MARTINEZ graft that originates at the MARTINEZ and attaches to the Mid LAD. Coronary Tree Procedure Data Procedure Date Date: 05/10/2017Start: 01:37 PMEnd: 03:16 PM Entry Locations - Retrograde Percutaneous access was performed through the Right Femoral artery (Primary location). A 6 Fr sheath was inserted. Hemostasis was successfully obtained using Perclose ProGlide ([place]). Closure Comments: deployed by alise. Procedure Medications Order and Administration + + + + + !Time !Medication !Dosage !Route ! + + + + + !05/10/2017 01:31 !Versed !1 mg !I.V. ! !PM ! ! ! ! + + + + + !05/10/2017 01:32 !Fentanyl !50 mcg !I.V. ! !PM ! ! ! ! + + + + 05/10/2017 02:06 !Angiomax (Bivalirudin) !80 mg !I.V. bolus ! !PM !(ACC_5) ! ! ! + + + + + !05/10/2017 02:10 !Angiomax (Bivalirudin) !1.75 mg/kg/hr!I.V. drip ! !PM !(ACC_5) ! ! ! + + + + 05/10/2017 02:19 !Fentanyl !50 mcg !I.V. ! !PM ! ! ! ! + + + + 05/10/2017 02:26 !Versed !1 mg !I.V. ! !PM ! ! ! ! + + + + + !05/10/2017 03:06 !Brilinta (Ticagrelor) !180 mg !P.O. ! !PM !(ACC_20) ! ! ! + + + + + !05/10/2017 03:10 !Angiomax (Bivalirudin) ! !I.V. drip ! !PM !(ACC_5) ! ! ! + + + + + !05/10/2017 03:31 !Morphine !2 mg !I.V. ! !PM ! ! ! ! + + + + + Devices Used - A5 Fr. BS JL 4 Diag. Catheterwas used for:Left coronary angiography. - A5 Fr. BS JR 4 Diag. Catheterwas used for:Right coronary angiography. - A5 Fr. BS IMT Diag. Catheterwas used for:MARTINEZ. - A5FR LCB DIAGNOSTIC CATH ([id number])was used for:SVG. - A5 Fr. BS AL1 Diag. Catheterwas used for:SVG. - A5 Fr. BS MPA2 Diag. Catheterwas used for:SVG. - A6 Fr. MPA1 JJ Guide Catheterwas used for:SVG Intervention. - A5 Fr. BS Angled Pigtail Diag. Catheterwas used for:LV Pressures. Contrast Material - Isovue [id number] ml Fluoroscopy Time: Diagnostic: 36:12 minutes. Total: 36:12 minutes. Fluoroscopy Dose: Diagnostic: 2660 mGy. Total: 2660 mGy. Estimated Blood Loss: 20 ml. Additional [facility] PCI Information PCI Indication:PCI for high risk Non-STEMI or unstable angina. Medical History Performed Procedures and Imaging Results - No [facility] stress or imaging studies were performed. Allergies - No known allergies. Risk Factors The patient risk factors include:prior PCI on 01/12/2013; prior CABG on 10/11/2003;cerebrovascular disease, hypercholesterolemia, hypertension, family history of premature CAD, insulin-treated diabetes mellitus, chronic lung disease, last creatinine: 1.8 mg/dl, creatinine clearance: 63.88 ml/min, dyslipidemia and former tobacco use. Admission Data Admission Date: 05/10/2017 Admission Time: 11:20 AM Admit Source: Emergency department Insurance Payors: None. Admission Medications + +------+------+ + + + + !Medication !Dosage!Times !Last !Last !Administered !Comments ! ! ! !Per !Delivery !Delivery ! ! ! ! ! !Day !Date !Time ! ! ! + +------+------+ + + + + !Aspirin ! ! ! ! !Yes ! ! !(any) ! ! ! ! ! ! ! + +------+------+ + + + + !WILLIAM ! ! ! ! !Yes ! ! !Inhibitor ! ! ! ! ! ! ! !(any) ! ! ! ! ! ! ! + +------+------+ + + + + !Statin (any)! ! ! ! !Yes ! ! + +------+------+ + + + + Clinical Evaluation Leading to Procedure - The patient's CAD presentation was assessed as: Non-STEMI. - The patient's anginal syndrome during the past two weeks was assessed as: Class IV according to the [place] Cardiovascular Society Classification System (CCS). Hemodynamics Condition: Rest O2 Consumption: Estimated: 254.15Heart Rate: 52 bpm Pressures (mmHg) +-----+ + !Site !Pressure ! +-----+ + !AO !125/64 (87) ! +-----+ + !LV !159/7 ,16 ! +-----+ + !LV !149/5 ,15 ! +-----+ + !AO !154/72 (103) ! +-----+ + !LV !156/4 ,14 ! +-----+ + Valve Gradients and Areas + +---------+---------+---------+ +---------+ + !Valve !Peak !Mean !Area !Index !Flow !Source ! + +---------+---------+---------+ +---------+ + !Aortic !2 !0 ! ! ! ! ! + +---------+---------+---------+ +---------+ + !Aortic !2 !0 ! ! ! ! ! + +---------+---------+---------+ +---------+ + Shunts Oxygen Values O2 Capacity 58631.28 O2 Consumption 254.15 Signatures dtt: DARCIE VIDES dtd: 05/10/17 1337 Physician Self Edit
[~2017-05-10 00:13] MED LIST: ADVAIR 250-501 EACH INH; ASPIRIN (CHILDR81 MG PO; CARVEDILOL6.25 MG PO; DEXILANT60 MG PO; EFFIENT10 MG; GLUCOPHAGE500 MG PO; LEVOTHROID (SY50 MCG PO; PRAVACHOL40 MG; PRINIVIL OR ZES10 MG PO; WELLBUTRIN XL300 M1 PO
[2017-05-10 00:45] LABS: BASOPHIL # 0.1 K/uL (0.0-0.2); BASOPHIL % 0.8 %; EOSINOPHIL # 0.5 K/uL (0.0-0.5); EOSINOPHIL % 5.9 %; HEMATOCRIT 36.9 % (37.0-53.0); HEMOGLOBIN 12.3 g/dL (12.0-17.0); IMMATURE GRANULOCYTE # 0.1 K/uL (0.0-0.3); LYMPHOCYTE % 12.1 %; MCH 29.4 pg (27.0-34.0); MCHC 33.3 gm/dL (32.0-36.5); MCV 88.3 fl (83.0-98.0); MONOCYTE # 0.8 K/uL (0.0-1.0); MONOCYTE % 10.5 %; MPV 9.5 fl (9.4-12.4); NEUTROPHIL # (ANC) 5.6 K/uL (1.4-9.0); NEUTROPHIL % 69.7 %; NRBC % 0 /100WBC (0-0.00); PLATELET COUNT 277 K/uL (150-450); RBC 4.18 M/uL (4.00-6.00); RDW-CV 13.3 % (11.9-14.6)
[2017-05-10 00:52] LABS: INR - (THERAPEUTIC) 0.93 (0.92-1.07); PROTIME 9.8 SECONDS (9.8-11.4); PTT 28 SECONDS (25-32)
[2017-05-10 01:04] LABS: ALBUMIN 2.9 gm/dL (3.5-5.0); ANION GAP 12.9 (10.0-19.0); CALCIUM 8.2 mg/dL (8.5-10.5); CREATININE 1.8 mg/dL (0.6-1.3); MAGNESIUM 1.7 mg/dL (1.8-2.6); POTASSIUM 3.9 mMol/L (3.7-5.1); TOTAL PROTEIN 6.7 g/dL (6.0-8.4)
[2017-05-10 01:08] LABS: TOTAL BILIRUBIN 0.1 mg/dL (0.0-1.5)
[2017-05-11 04:24] LABS: BASOPHIL # 0.1 K/uL (0.0-0.2); BASOPHIL % 0.6 %; EOSINOPHIL # 0.3 K/uL (0.0-0.5); EOSINOPHIL % 3.9 %; HEMATOCRIT 34.7 % (37.0-53.0); HEMOGLOBIN 11.9 g/dL (12.0-17.0); IMMATURE GRANULOCYTE # 0.1 K/uL (0.0-0.3); IMMATURE GRANULOCYTE % 0.8 %; LYMPHOCYTE # 0.8 K/uL (0.8-4.0); LYMPHOCYTE % 8.9 %; MCH 30.1 pg (27.0-34.0); MCHC 34.3 gm/dL (32.0-36.5); MCV 87.6 fl (83.0-98.0); MONOCYTE # 0.8 K/uL (0.0-1.0); MONOCYTE % 9.2 %; MPV 9.4 fl (9.4-12.4); NEUTROPHIL # (ANC) 6.6 K/uL (1.4-9.0); NEUTROPHIL % 76.6 %; NRBC % 0 /100WBC (0-0.00); PLATELET COUNT 223 K/uL (150-450); RBC 3.96 M/uL (4.00-6.00); RDW-CV 13.1 % (11.9-14.6); WBC 8.7 K/uL (4.0-11.0)
[2017-05-11 04:45] LABS: ALBUMIN 2.5 gm/dL (3.5-5.0); ANION GAP 12.2 (10.0-19.0); CALCIUM 8.1 mg/dL (8.5-10.5); CREATININE 1.4 mg/dL (0.6-1.3); POTASSIUM 4.2 mMol/L (3.7-5.1); TOTAL PROTEIN 5.8 g/dL (6.0-8.4)
[2017-05-11 04:49] LABS: TOTAL BILIRUBIN 0.3 mg/dL (0.0-1.5)
[2017-05-11] MEDS ORDERED: LIPITOR40 MG PO (09:15)
[2017-05-11] MEDS ORDERED: BRILINTA90 MG PO (09:24)
[2017-05-11] MEDS ORDERED: BRILINTA90 MG (09:33)
== END 2017-05-11 10:55 | disposition disaster alternative care site (69) | DRG 247 ==
LOC: GMED 00:13 → GPCU 01:57
PROVIDERS: Emergency Medicine; Internal Medicine Interventional Cardiology; Obstetrics & Gynecology Obstetrics; ADMIT Family Medicine
PROC: 027034Z Dilation of Coronary Artery, One Artery with Drug-eluting Intraluminal Device, Percutaneous Approach (ICD-10-PCS; principal; 2017-05-10)
PROC: 4A023N7 Measurement of Cardiac Sampling and Pressure, Left Heart, Percutaneous Approach (ICD-10-PCS; principal; 2017-05-10)
PROC: B2111ZZ Fluoroscopy of Multiple Coronary Arteries using Low Osmolar Contrast (ICD-10-PCS; principal; 2017-05-10)
DX: I24.9 Acute ischemic heart disease, unspecified (principal); I12.9 Hypertensive chronic kidney disease with stage 1 through stage 4 chronic kidney disease, or unspecified chronic kidney disease; E03.9 Hypothyroidism, unspecified; E11.9 Type 2 diabetes mellitus without complications; E78.2 Mixed hyperlipidemia; F32.9 Major depressive disorder, single episode, unspecified; F41.9 Anxiety disorder, unspecified; I25.10 Atherosclerotic heart disease of native coronary artery without angina pectoris; J44.9 Chronic obstructive pulmonary disease, unspecified; K21.9 Gastro-esophageal reflux disease without esophagitis; N18.9 Chronic kidney disease, unspecified; R74.8 Abnormal levels of other serum enzymes; Z72.0 Tobacco use
CPT/HCPCS: C1725; C1760; C1769; C1874; C1884; C1887; C9604; J0583; J1644; J2250; J2270; J3010; J7030; J7060